=== PATIENT | male | born 1955 | race Caucasian/White ===

== ENCOUNTER 2019-09-24 07:21 | Emergency (ER) | payer MEDICARE, BC ==
[2019-09-24] MEDS ORDERED: CLONIDINE HCL 0.1 MG TABLET PO ONE (07:59)
--- NOTE | 2019-09-24 08:15 | Emergency Department Record ---
History of Present Illness - General Chief Complaint: Hypertension Stated Complaint: ELEVATED BLOOD PRESSURE Time Seen by Provider: 09/24/19 07:29 Source: Patient Mode of Arrival: Ambulatory Limitations: No limitations - History of Present Illness Initial Comments: pt felt like his bp was high and checked it and found it to be. he denies any cp,olivas. pt has a hx of htn. he took his morning bp pill Onset/Timin -: Week(s) Timing: Unsure Description: Other Severity: Mild Improves With: Rest Worsens With: Nothing - Divya Coma Scale Eye Response: (4) Open spontaneously Motor Response: (6) Obeys commands Verbal Response: (5) Oriented Divya Total: 15 - Related Data Home Medications Medication Instructions Recorded Confirmed Last Taken Aspirin [Adult Aspirin Regimen] 81 mg PO DAILY 09/24/19 09/24/19 09/24/19 Cariprazine HCl [Vraylar] 4 mg PO BID 09/24/19 09/24/19 09/24/19 Lisinopril 20 mg PO DAILY 09/24/19 09/24/19 09/24/19 Omeprazole [Prilosec] 20 mg PO DAILY 09/24/19 09/24/19 09/24/19 Previous Rx's Medication Instructions Recorded Amlodipine Besylate [Norvasc] 2.5 mg PO DAILY #14 tablet 09/24/19 Allergies Allergy/AdvReac Type Severity Reaction Status Date / Time No Known Drug Intolerances Allergy PT UNSURE Verified 09/24/19 08:04 OF REACTION Travel Screening - Travel/Exposure Within Last 30 Days Have you traveled within the last 30 days?: No - Travel/Exposure Within Last Year Have you traveled outside the [place] in the last year?: No - Additonal Travel Details Have you been exposed to anyone with a communicable illness?: No - Travel Symptoms Symptom Screening: None Review of Systems Reviewed: No additional complaints except as noted below Constitutional: Reports: As per HPI. Denies: Chills, Fever, Malaise, Night sweats, Weakness, Weight change Eyes: Reports: As per HPI. Denies: Eye discharge, Eye pain, Photophobia, Vision change ENT: Reports: As per HPI. Denies: Congestion, Dental pain, Ear pain, Epistaxis, Hearing loss, Throat pain Respiratory: Reports: As per HPI. Denies: Cough, Dyspnea, Hemoptysis, Stridor, Wheezes Cardiovascular: Reports: As per HPI. Denies: Arrhythmia, Chest pain, Dyspnea on exertion, Edema, Murmurs, Orthopnea, Palpitations, Paroxysmal nocturnal dyspnea, Rheumatic Fever, Syncope Endocrine: Reports: As per HPI. Denies: Fatigue, Heat or cold intolerance, Polydipsia, Polyuria Gastrointestinal: Reports: As per HPI. Denies: Abdominal pain, Constipation, Diarrhea, Hematemesis, Hematochezia, Melena, Nausea, Vomiting Genitourinary: Reports: As per HPI. Denies: Dysuria, Frequency, Hematuria, Incontinence, Retention, Testicular pain, Testicular mass, Urgency Musculoskeletal: Reports: As per HPI. Denies: Arthralgia, Back pain, Gout, Joint swelling, Myalgia, Neck pain Skin: Reports: As per HPI. Denies: Bruising, Change in color, Change in hair/nails, Lesions, Pruritus, Rash Neurological: Reports: As per HPI. Denies: Abnormal gait, Confusion, Headache, Numbness, Paresthesias, Seizure, Tingling, Tremors, Vertigo, Weakness Psychiatric: Reports: As per HPI. Denies: Anxiety, Auditory hallucinations, Depression, Homicidal thoughts, Suicidal thoughts, Visual hallucinations Hematological/Lymphatic: Reports: As per HPI. Denies: Anemia, Blood Clots, Easy bleeding, Easy bruising, Swollen glands Past Medical History - SOCIAL HISTORY Smoking Status: Never smoker Alcohol Use: Occasional Drug Use: None - RESPIRATORY Hx Respiratory Disorders: No - CARDIOVASCULAR Hx Cardio Disorders: Yes Hx Hypertension: Yes - NEURO Hx Neuro Disorders: No - GI Hx GI Disorders: Yes Hx Reflux: Yes Comment:: chronic diarrhea - Hx Genitourinary Disorders: No - ENDOCRINE Hx Endocrine Disorders: No - MUSCULOSKELETAL Hx Musculoskeletal Disorders: No - PSYCH Hx Psych Problems: Yes Comment:: bipolar - HEMATOLOGY/ONCOLOGY Hx Hematology/Oncology Disorders: No Family Medical History Any Significant Family History?: Yes Hx Resp Disorders: Father Physical Exam - General General Appearance: Alert, Oriented x3, Cooperative, No acute distress - Head Head exam: Normal inspection - Eye Eye exam: Normal appearance, PERRL, EOMI Pupils: Normal accommodation - ENT ENT exam: Normal exam, Mucous membranes moist, Normal external ear exam, Normal orophraynx Ear exam: Normal external inspection. negative: External canal tenderness Nasal Exam: Normal inspection. negative: Discharge, Sinus tenderness Mouth exam: Normal external inspection, Tongue normal Teeth exam: Normal inspection. negative: Dental caries Throat exam: Normal inspection. negative: Tonsillar erythema, Tonsillar exudate - Neck Neck exam: Normal inspection, Full ROM. negative: Tenderness - Respiratory Respiratory exam: Normal lung sounds bilaterally. negative: Respiratory distress - Cardiovascular Cardiovascular Exam: Regular rate, Normal rhythm, Normal heart sounds - GI/Abdominal GI/Abdominal exam: Soft, Normal bowel sounds. negative: Tenderness - Rectal Rectal exam: Deferred - exam: Deferred - Extremities Extremities exam: Normal inspection, Full ROM, Normal capillary refill. negative: Tenderness - Back Back exam: Reports: Normal inspection, Full ROM. Denies: Muscle spasm, Rash noted, Tenderness - Neurological Neurological exam: Alert, CN II-XII intact, Normal gait, Oriented X3 - Psychiatric Psychiatric exam: Normal affect, Normal mood - Skin Skin exam: Dry, Intact, Normal color, Warm Course Vital Signs 09/24/19 07:38 Temperature 98.8 F Pulse Rate 90 Respiratory 20 Rate Blood Pressure 230/129 Pulse Ox 97 Medical Decision Making - Lab Data Result diagrams: 09/24/19 07:40 09/24/19 07:40 Disposition Disposition: Discharge Clinical Impression: HTN (hypertension) Qualifiers: Hypertension type: essential hypertension Qualified Code(s): I10 - Essential (primary) hypertension Disposition: Home, Self-Care Condition: (1) Good Instructions: Hypertension (ED) Additional Instructions: follow up with family doctor this week. return sooner if worse. monitor blood pressure daily Prescriptions: Amlodipine Besylate [Norvasc] 2.5 mg PO DAILY #14 tablet Forms: Patient Portal Access Quality - Quality Measures Quality Measures: N/A - Blood Pressure Screening Does Patient Have Any of the Following: Active Dx of HTN Blood Pressure Classification: Hypertensive Reading Systolic Measurement: 230 Diastolic Measurement: 129 Screening for High Blood Pressure: Patient Exclusion, Hx of HTN [[id number]]
[2019-09-24 08:30] LABS: ABSOLUTE NEUTROPHIL COUNT 5.88; BASO % 0.2 % (0-6); EOS % 2.1 % (0-6); GRAN % 72.1 % (47-80); HEMATOCRIT 48.7 % (42.0-52.0); HEMOGLOBIN 17.6 gm/dl (14.0-18.0); LYMPH % 18.7 % (16-45); MEAN CELL VOLUME 83.1 fl (81-97); MEAN CORPUSCULAR HGB CONC 36.1 g/dl (32-36); MEAN PLATELET VOLUME 9.9 fl (7.4-10.4); MONO % 6.9 % (0-9); PLATELET COUNT 284 K/uL (130-400); RED BLOOD COUNT 5.86 M/uL (4.40-5.70); RED CELL DISTRIBUTION WIDTH 14.2 % (11.5-14.5); WHITE BLOOD COUNT W/O DIFF 8.2 K/uL (4.2-12.2)
[2019-09-24 08:41] LABS: BLOOD UREA NITROGEN 10 mg/dL (8-23); CREATININE 0.8 mg/dL (0.7-1.2); EST GLOMERULAR FILTRATION RATE > 60 mL/min
[2019-09-24 08:44] LABS: GLUCOSE,RANDOM 132 mg/dL (74-109)
== END 2019-09-24 09:22 | disposition home or self-care (01) ==
LOC: ER 07:21
DX: I10 Essential (primary) hypertension (principal)
CPT/HCPCS: 80048; 85025; 93005; 93010; 99284